=== PATIENT | female | born 1985 | race Two or more races ===

== ENCOUNTER 2025-01-15 18:57 | Emergency (ER) | payer OTHER ==
[~2025-01-15] VITALS: Ht 152.4 cm; Wt 50.8 kg
[2025-01-15] MEDS ORDERED: HYDROXYZINE HCL25 MG PO (20:31)
== END 2025-01-15 21:05 | disposition home or self-care (01) ==
LOC: ER 18:57
DX: F41.9 Anxiety disorder, unspecified (principal)